=== PATIENT | female | born 2000 | race African-American/Black ===

== ENCOUNTER 2025-03-08 21:58 | Emergency (ER) | payer SELFPAY ==
[~2025-03-08] VITALS: Ht 180.3 cm; Wt 61.0 kg
[2025-03-08 22:04] VITALS: O2SAT 98
[2025-03-08 22:08] VITALS: TEMP 36.3
[2025-03-08 23:36] LABS: BASOPHILS % 0.5 % (0.0-2.0); EOSINOPHILS % 1.0 % (0.0-5.0); HEMATOCRIT. 41.4 %; HEMOGLOBIN. 13.5 g/dL; LYMPHOCYTES % 26.3 %; MEAN PLATELET VOLUME 8.9 fl (7.4-10.4); MONOCYTES % 8.9 % (2.0-8.0); NEUTROPHILS % 63.3 %; PLATELET 215 x1000/uL (130-400); RED BLOOD CELL COUNT 5.07 mill/uL; RED CELL DISTRIBUTION WIDTH 15.2 % (11.6-14.6)
[2025-03-08 23:38] VITALS: TEMP 97.3
[2025-03-08] MEDS: ACETAMINOPHEN 325MG TABLET PO ONE (23:38)
[2025-03-08 23:47] LABS: CREATININE 0.9 mg/dL (0.6-1.0); UREA NITROGEN BLOOD 9 mg/dL (9-23)
[2025-03-08 23:48] LABS: TROPONIN I HIGH SENSITIVITY 15 ng/L (3.0-34)
[2025-03-09 01:14] VITALS: BP 118/76; PULSE 66; RESP 18; O2SAT 100
== END 2025-03-09 01:17 | disposition home or self-care (01) ==
LOC: ER 21:58 → EDSEX 21:58 → ER 03-09 01:17
DX: R07.9 Chest pain, unspecified (principal)
CPT/HCPCS: 36415; 70360; 71045; 80048; 84484; 85025; 93005; 99285